=== PATIENT | female | born 1980 | race American Indian/Alaskan Native ===

== ENCOUNTER 2018-04-14 11:53 | Day surgery (SDC) | payer OTHER ==
--- NOTE | 2018-04-14 12:47 | Anesthesia Consultation ---
Anesthesia Consult and Med Hx Date of service: 04/14/18 - Airway Anesthetic Teeth Evaluation: Good ROM Head & Neck: Adequate Mental/Hyoid Distance: Adequate Mallampati Class: Class II Intubation Access Assessment: Probably Good - Pulmonary Exam CTA: Yes - Cardiac Exam Cardiac Exam: RRR - Pre-Operative Health Status ASA Pre-Surgery Classification: ASA2 Proposed Anesthetic Plan: General - Central Nervous System Hx Psychiatric Problems: No - Hematic Hx Sickle Cell Disease: Yes (Trait only) - Other Systems Hx Cancer: No - Additional Comments Anesthesia Medical History Comments: Migraine headaches
--- NOTE | 2018-04-14 12:48 | Anesthesia Day of Surgery ---
Anesthesia Day of Surgery - Day of Surgery Patient Examined: Yes Patient H&P Reviewed: Yes Patient is NPO: Yes
[2018-04-14] MEDS ORDERED: PERCOCET 5/325 PO PRN (12:50)
[2018-04-14] MEDS ORDERED: DILAUDID IV PRN (12:50)
[2018-04-14] MEDS ORDERED: ZOFRAN IV PRN (12:50)
[2018-04-14 12:56] LABS: Hematocrit 40.4 % (30.3-42.9); Hemoglobin 13.4 gm/dl (10.1-14.3)
[2018-04-14] MEDS ORDERED: VERSED IV NR (13:00)
[2018-04-14] MEDS ORDERED: DECADRON 12 MG in NACL 0.9% 50 ML IV NR (13:00)
[2018-04-14] MEDS ORDERED: ZOFRAN IV NR (13:00)
--- NOTE | 2018-04-14 13:01 | Short Stay Summary ---
Short Stay Documentation Date of service: 04/14/18 Narrative H&P: 37y/o with dysfunctional uterine bleeding that has failed medical management. Ultrasound indicates findings of small leiomyomas. - History Principal diagnosis: Dysfunctional uterine bleeding Past Medical History: other (sickle cell trait; fibroids) Past Surgical History: , Other (tubal ligation) Social history: single - Allergies and Medications Current Medications: Allergies No Known Allergies Allergy (Verified 04/13/18 12:21) Home Medications Medication Instructions Recorded Confirmed Last Taken Type Topiramate [Topamax] 50 mg PO BID 11/14/13 04/13/18 Unknown History Norgestimate-Ethinyl Estradiol 1 each PO DAILY 04/13/18 04/13/18 Unknown History [Ortho Tri-Cyclen 28 Tablet] Rizatriptan Benzoate [Maxalt] 10 mg PO PRN PRN 04/13/18 04/13/18 Unknown History Active Medications Celecoxib (Celebrex) 200 mg PO PREOP NR Stop: 04/14/18 23:59 Hydromorphone HCl (Dilaudid) 0.5 mg IV Q10MIN PRN PRN Reason: Pain , Severe (7-10) Lactated Ringer's (Lactated Ringers) 1,000 mls @ 100 mls/hr IV DIRECT UNRULY Dexamethasone 12 mg/ Sodium (Chloride) 53 mls @ 100 mls/hr IV PREOP NR Midazolam HCl (Versed) 2 mg IV PREOP NR Stop: 04/14/18 23:59 Ondansetron HCl (Zofran) 4 mg IV PREOP NR Ondansetron HCl (Zofran) 4 mg IV ONCE PRN PRN Reason: Nausea And Vomiting Oxycodone/Acetaminophen (Percocet 5/325) 1 tab PO ONCE PRN PRN Reason: Pain, Moderate (4-6) - Physical exam General appearance: no acute distress Integumentary: no rash HEENT: Atraumatic Lungs: Clear to auscultation Breasts: deferred Heart: Regular rate Gastrointestinal: normal Female Genitourinary: deferred Rectal Exam: deferred Extremities: no ischemia Neurological: Normal gait - Brief post op/procedure progress note Date of procedure: 04/14/18 Pre-op diagnosis: dysfunctional uterine bleeding Post-op diagnosis: same Procedure: Hysteroscopy Endometrial ablation via NovaSure Anesthesia: CODYA Surgeon: RAMOS ROMERO Estimated blood loss: minimal Pathology: none Condition: stable - Hospital course Hospital course: The patient was admitted the day of surgery and underwent a regional ablation. Please see operative note for details of surgery. Postoperative course was uneventful. - Disposition Condition at discharge: Good Disposition: DC-01 TO HOME OR SELFCARE Short Stay Discharge Plan Activity: other (pelvic rest for 1 week) Diet: regular Additional Instructions: Scheduled follow-up with Dr. Dickson in 4 weeks Prescriptions: Ibuprofen [Motrin] 800 mg PO Q8HR PRN #60 tablet PRN Reason: Pain, Mild (1-3) oxyCODONE /ACETAMINOPHEN [Percocet 5/325] 1 tab PO Q6HR PRN #20 tablet PRN Reason: Pain
[2018-04-14] MEDS ORDERED: PEPCID IV NR (13:11)
[2018-04-14] MEDS ORDERED: LACTATED RINGERS 1,000 ML IV SCH (13:14)
[2018-04-14] MEDS ORDERED: DECADRON ONE (13:16)
[2018-04-14] MEDS ORDERED: SUBLIMAZE ONE (13:18)
[2018-04-14] MEDS ORDERED: VERSED ONE (13:18)
[2018-04-14] MEDS ORDERED: DIPRIVAN 10 MG/ML IV ONE (13:19)
[2018-04-14] MEDS ORDERED: XYLOCAINE MPF 2% ONE (13:22)
[2018-04-14] MEDS ORDERED: SILVER NITRATE TP ONE (13:26)
[2018-04-14] MEDS ORDERED: BENADRYL ONE (13:58)
[2018-04-14] MEDS ORDERED: ZOFRAN ONE (13:58)
[2018-04-14] MEDS ORDERED: TORADOL ONE (13:59)
[2018-04-14] MEDS ORDERED: DECADRON IV ONE (14:00)
[2018-04-14] MEDS ORDERED: LACTATED RINGERS 1,000 ML ONE (14:25)
--- NOTE | 2018-04-14 14:37 | Operative Report ---
Operative Report Operative Report: Date of procedure: 04/14/2018 Pre-operative diagnosis: Dysfunctional uterine bleeding Post-operative diagnosis: Same as above Procedure name(s): Hysteroscopy; endometrial ablation via NovaSure Surgeon: Bev Garcia M.D. [employer] Analyst: None Anesthesia: General endotracheal anesthesia Findings: Normal endometrial cavity Indication: 37-year-old with a history of dysfunctional uterine bleeding. The patient elected to undergo surgical management. Procedure The patient was taken to the operating room and given general tracheal anesthesia without complication. The patient was prepped and draped in a normal sterile fashion. A bivalve speculum was placed in the patient's vagina single- tooth tenaculums placed on the anterior lip of the cervix. The cervical os was dilated with graduated dilators. A uterine sound was inserted. The hysteroscope was then placed. Insufflation of the uterine cavity was performed with normal saline. Gen. survey of the uterine cavity revealed normal uterine cavity. The hysteroscope was then removed. The NovaSure device was then inserted. The endometrial length was 5.0 cm and the uterine width was 4.5 cm. The device was engaged and it passed the surveillance of the uterine cavity. The NovaSure device was then deployed with a energy of 124 W that lasted for 1 minute 56 seconds. The NovaSure device was then removed. The hysteroscope was again reinserted. There was evidence of charring of the endometrial surface. The remainder of the vaginal instruments were then removed atraumatically. The patient was then successfully extubated taken to the recovery room. All sponge laps and needle counts were correct 2.
[2018-04-14] MEDS ORDERED: NACL 0.9% IR ONE (14:44)
--- NOTE | 2018-04-14 15:58 | Post Anesthesia Evaluation ---
- Post Anesthesia Evaluation Patient Participated: Yes Airway Patent: Yes Stable Respiratory Function: Yes Temp > 96.8F: Yes Pain Manageable: Yes Adequeate Hydration: Yes Anesthesia Complications: No
[2018-04-14 20:30] VITALS: BP 112/72
== END 2018-04-14 11:54 | disposition home or self-care (01) ==
LOC: OR 11:53
PROVIDERS: ATTEND Obstetrics & Gynecology
DX: N93.8 Other specified abnormal uterine and vaginal bleeding (principal); D25.9 Leiomyoma of uterus, unspecified; K21.9 Gastro-esophageal reflux disease without esophagitis; G43.909 Migraine, unspecified, not intractable, without status migrainosus; Z98.891 History of uterine scar from previous surgery; Z98.890 Other specified postprocedural states; Z79.899 Other long term (current) drug therapy; Z86.2 Personal history of diseases of the blood and blood-forming organs and certain disorders involving the immune mechanism; Z98.51 Tubal ligation status
CPT/HCPCS: 36415; 58563; 81025; 85014; 85018; A4217; J1100; J1200; J1885; J2250; J2405; J2704; J3010; J7120